=== PATIENT | female | born 1945 | race Caucasian/White ===

== ENCOUNTER 2018-08-31 11:53 | Outpatient (CLI) | payer MEDICARE, OTHER ==
--- NOTE | 2018-08-31 12:36 | XRAY Report ---
Reason: CHRONIC PAIN Procedure Date: 08/31/2018 Accession Number: [id number] / [id number] Procedure: XR - Foot 3 View RT CPT Code: FULL RESULT: EXAM: RIGHT FOOT RADIOGRAPHY EXAM DATE: 08/31/2018 12:07 PM. CLINICAL HISTORY: Chronic pain. COMPARISON: FOOT 3 VIEW RT 04/15/2015 3:12 PM. TECHNIQUE: 3 views. FINDINGS: Bones: The bones are qualitatively osteopenic; this limits evaluation for underlying fractures or masses. No fracture is detected. Joints: There is joint space narrowing over the interphalangeal joints and some sclerosis of metatarsophalangeal joints, progressed compared to 2014. Soft Tissues: Normal. No soft tissue swelling. IMPRESSION: Osteopenia and progression of midfoot degenerative changes. [facility]
== END 2018-08-31 11:54 | disposition home or self-care (01) ==
LOC: DI 11:53
PROVIDERS: ATTEND Podiatrist
DX: M19.071 Primary osteoarthritis, right ankle and foot (principal); M85.871 Other specified disorders of bone density and structure, right ankle and foot